=== PATIENT | female | born 1930 | race Caucasian/White ===

== ENCOUNTER 2017-06-20 07:35 | Outpatient (CLI) | payer OTHER ==
[~2017-06-20 07:35] MED LIST: ALLOPURINOL100 MG PO; BTREX; DIOVAN160 M1 PO; DIOVAN40 MG PO; METAMUCIL1 PKT PO; NEURIN SL; NEURONTIN300 MG PO; NORVASC10 MG PO; PANCRELIPASE PO; SYNTHROID75 MCG PO; TRAMADOL HCL-AP1 TAB PO; TRENTAL; TROMBONEX CAPSU1 CAP PO; VALTREX1000 MG PO; ZOCOR40 MG PO
== END 2017-06-20 07:46 | disposition home or self-care (01) ==
LOC: LAB 07:35
DX: E11.65 Type 2 diabetes mellitus with hyperglycemia (principal); D68.8 Other specified coagulation defects; E03.8 Other specified hypothyroidism; E78.2 Mixed hyperlipidemia

== ENCOUNTER 2017-06-28 09:23 | Outpatient (CLI) | payer OTHER | END 2017-06-28 09:35 | disposition home or self-care (01) | LOC: NUCLEAR 09:23 | DX: M81.0 Age-related osteoporosis without current pathological fracture (principal) ==

== ENCOUNTER 2017-08-21 09:31 | Outpatient (CLI) | payer OTHER | END 2017-08-21 10:21 | disposition home or self-care (01) | LOC: LAB 09:31 | DX: R63.0 Anorexia (principal); N39.0 Urinary tract infection, site not specified; D53.1 Other megaloblastic anemias, not elsewhere classified; K57.32 Diverticulitis of large intestine without perforation or abscess without bleeding; D51.8 Other vitamin B12 deficiency anemias; D64.89 Other specified anemias; R10.84 Generalized abdominal pain ==

== ENCOUNTER 2017-09-25 07:47 | Outpatient (CLI) | payer OTHER | END 2017-09-25 08:03 | disposition home or self-care (01) | LOC: LAB 07:47 | DX: E11.65 Type 2 diabetes mellitus with hyperglycemia (principal); D68.8 Other specified coagulation defects; R82.79 Other abnormal findings on microbiological examination of urine; E03.8 Other specified hypothyroidism; N39.0 Urinary tract infection, site not specified; E78.2 Mixed hyperlipidemia; J45.998 Other asthma ==

== ENCOUNTER 2017-11-01 08:47 | Outpatient (CLI) | payer OTHER | END 2017-11-01 09:10 | disposition home or self-care (01) | LOC: LAB 08:47 | DX: D68.8 Other specified coagulation defects (principal); D51.0 Vitamin B12 deficiency anemia due to intrinsic factor deficiency; K29.40 Chronic atrophic gastritis without bleeding; N39.0 Urinary tract infection, site not specified; R82.79 Other abnormal findings on microbiological examination of urine ==

== ENCOUNTER → 2017-11-02 | Outpatient (CLI) | payer OTHER | END | disposition home or self-care (01) | LOC: LAB 07:53 | DX: D68.8 Other specified coagulation defects (principal); D51.0 Vitamin B12 deficiency anemia due to intrinsic factor deficiency; K29.40 Chronic atrophic gastritis without bleeding; N39.0 Urinary tract infection, site not specified; Z12.11 Encounter for screening for malignant neoplasm of colon ==

== ENCOUNTER 2017-12-04 11:18 | Outpatient (CLI) | payer OTHER | END 2017-12-04 11:19 | disposition home or self-care (01) | LOC: LAB 11:18 | DX: E11.65 Type 2 diabetes mellitus with hyperglycemia (principal); D68.8 Other specified coagulation defects; E03.8 Other specified hypothyroidism; N39.0 Urinary tract infection, site not specified; R82.8 Abnormal findings on cytological and histological examination of urine ==

== ENCOUNTER 2018-01-08 08:42 | Outpatient (CLI) | payer OTHER | END 2018-01-08 09:08 | disposition home or self-care (01) | LOC: LAB 08:42 | DX: E11.21 Type 2 diabetes mellitus with diabetic nephropathy (principal); E11.65 Type 2 diabetes mellitus with hyperglycemia; N39.0 Urinary tract infection, site not specified; R82.79 Other abnormal findings on microbiological examination of urine ==

== ENCOUNTER 2018-01-10 09:29 | Outpatient (CLI) | payer OTHER | END 2018-01-10 09:44 | disposition home or self-care (01) | LOC: LAB 09:29 | DX: E11.21 Type 2 diabetes mellitus with diabetic nephropathy (principal); E11.65 Type 2 diabetes mellitus with hyperglycemia; N39.0 Urinary tract infection, site not specified ==

== ENCOUNTER 2018-02-15 08:58 | Outpatient (CLI) | payer OTHER | END 2018-02-15 15:00 | disposition home or self-care (01) | LOC: LAB 08:58 | DX: R10.84 Generalized abdominal pain (principal); D49.0 Neoplasm of unspecified behavior of digestive system; D12.4 Benign neoplasm of descending colon; R63.0 Anorexia; K85.90 Acute pancreatitis without necrosis or infection, unspecified ==

== ENCOUNTER 2018-02-15 09:56 | Outpatient (CLI) | payer OTHER | END 2018-02-15 14:59 | disposition home or self-care (01) | LOC: MRI 09:56 | DX: D49.0 Neoplasm of unspecified behavior of digestive system (principal); R10.84 Generalized abdominal pain; R63.0 Anorexia | CPT/HCPCS: 74181 ==

== ENCOUNTER → 2018-04-09 09:34 | Outpatient (CLI) | payer OTHER | END | disposition home or self-care (01) | LOC: LAB 09:34 | DX: E11.65 Type 2 diabetes mellitus with hyperglycemia (principal); E03.8 Other specified hypothyroidism; D64.89 Other specified anemias; N39.0 Urinary tract infection, site not specified; R82.79 Other abnormal findings on microbiological examination of urine ==

== ENCOUNTER 2018-06-21 08:38 | Outpatient (CLI) | payer OTHER | END 2018-06-21 08:53 | disposition home or self-care (01) | LOC: LAB 08:38 | DX: E03.8 Other specified hypothyroidism (principal); E78.2 Mixed hyperlipidemia; E11.21 Type 2 diabetes mellitus with diabetic nephropathy; D64.89 Other specified anemias ==

== ENCOUNTER 2018-08-06 09:31 | Outpatient (CLI) | payer OTHER | END 2018-08-06 09:33 | disposition home or self-care (01) | LOC: MAMO-SONO 09:31 | DX: Z12.31 Encounter for screening mammogram for malignant neoplasm of breast (principal); Z87.898 Personal history of other specified conditions; N60.11 Diffuse cystic mastopathy of right breast; N60.12 Diffuse cystic mastopathy of left breast ==

== ENCOUNTER → 2018-09-27 08:22 | Outpatient (CLI) | payer OTHER | END | disposition home or self-care (01) | LOC: LAB 08:22 | DX: N39.0 Urinary tract infection, site not specified (principal); E03.8 Other specified hypothyroidism; E11.65 Type 2 diabetes mellitus with hyperglycemia; E11.21 Type 2 diabetes mellitus with diabetic nephropathy; B96.29 Other Escherichia coli [E. coli] as the cause of diseases classified elsewhere ==

== ENCOUNTER 2018-12-16 11:02 | Outpatient (CLI) | payer OTHER | END 2018-12-16 15:00 | disposition home or self-care (01) | LOC: LAB 11:02 | DX: D64.89 Other specified anemias (principal); E79.0 Hyperuricemia without signs of inflammatory arthritis and tophaceous disease; E55.9 Vitamin D deficiency, unspecified; E11.65 Type 2 diabetes mellitus with hyperglycemia; E03.8 Other specified hypothyroidism ==

== ENCOUNTER → 2019-03-13 | Outpatient (CLI) | payer OTHER ==
[~2019-03-13] MED LIST changes: +CIPRO500 MG PO; +OFLOXACIN5 ML OTIC
== END | disposition home or self-care (01) ==
LOC: SONOGRAMA 11:37
DX: E04.2 Nontoxic multinodular goiter (principal); E03.8 Other specified hypothyroidism; E04.1 Nontoxic single thyroid nodule

== ENCOUNTER 2019-04-07 08:28 | Outpatient (CLI) | payer OTHER ==
[~2019-04-07 08:28] MED LIST changes: -CIPRO500 MG PO; -OFLOXACIN5 ML OTIC
== END 2019-04-07 08:34 | disposition home or self-care (01) ==
LOC: LAB 08:28
DX: D64.89 Other specified anemias (principal); E79.0 Hyperuricemia without signs of inflammatory arthritis and tophaceous disease; E03.8 Other specified hypothyroidism

== ENCOUNTER 2019-04-09 07:57 | Outpatient (CLI) | payer OTHER ==
[~2019-04-09] VITALS: Ht 154.9 cm; Wt 69.9 kg
[2019-04-09] MEDS ORDERED: CIPRO500 MG PO (11:15)
[2019-04-09] MEDS ORDERED: OFLOXACIN5 ML OTIC (11:15)
== END 2019-04-09 11:23 | disposition home or self-care (01) ==
LOC: OFIC 805 07:57
DX: J31.0 Chronic rhinitis (principal); H60.8X1 Other otitis externa, right ear; H92.11 Otorrhea, right ear

== ENCOUNTER 2019-04-23 07:57 | Outpatient (CLI) | payer OTHER ==
[~2019-04-23] VITALS: Ht 152.4 cm; Wt 69.9 kg
[~2019-04-23 07:57] MED LIST changes: +CIPRO500 MG PO; +OFLOXACIN5 ML OTIC
[2019-04-23] MEDS ORDERED: DERMOTIC20 ML OTIC (09:39)
== END 2019-04-23 09:52 | disposition home or self-care (01) ==
LOC: OFIC 805 07:57
DX: L29.8 Other pruritus (principal); J31.0 Chronic rhinitis; H60.8X1 Other otitis externa, right ear; H61.21 Impacted cerumen, right ear
CPT/HCPCS: 69210; 99213; G0463

== ENCOUNTER 2019-07-04 08:44 | Outpatient (CLI) | payer OTHER ==
[~2019-07-04 08:44] MED LIST changes: +DERMOTIC20 ML OTIC
== END 2019-07-04 08:55 | disposition home or self-care (01) ==
LOC: LAB 08:44
DX: E03.8 Other specified hypothyroidism (principal); E11.65 Type 2 diabetes mellitus with hyperglycemia; E78.2 Mixed hyperlipidemia; D64.89 Other specified anemias

== ENCOUNTER 2019-09-05 13:44 | Emergency (ER) | payer OTHER ==
[~2019-09-05] VITALS: Ht 149.9 cm; Wt 68.0 kg
[2019-09-05] MEDS ORDERED: SYNTHROID100 MCG (14:00)
[2019-09-05] MEDS ORDERED: SYNTHROID112 MCG (14:00)
[2019-09-05] MEDS ORDERED: CREON DR 12,001 EACH (14:01)
[2019-09-05] MEDS ORDERED: ATORVASTATIN CA20 MG (14:02)
== END 2019-09-05 15:21 | disposition home or self-care (01) ==
LOC: ER 13:44
DX: M54.32 Sciatica, left side (principal); M25.562 Pain in left knee

== ENCOUNTER 2019-10-08 07:47 | Outpatient (CLI) | payer OTHER ==
[~2019-10-08 07:47] MED LIST changes: +ATORVASTATIN CA20 MG; +CREON DR 12,001 EACH; +SYNTHROID100 MCG; +SYNTHROID112 MCG
== END 2019-10-08 07:51 | disposition home or self-care (01) ==
LOC: LAB 07:47
PROVIDERS: ATTEND Specialist
DX: E03.8 Other specified hypothyroidism (principal); Z12.11 Encounter for screening for malignant neoplasm of colon; D64.89 Other specified anemias; E11.65 Type 2 diabetes mellitus with hyperglycemia

== ENCOUNTER → 2019-10-14 08:40 | Outpatient (CLI) | payer OTHER | END | disposition home or self-care (01) | LOC: LAB 08:40 | PROVIDERS: ATTEND Specialist | DX: E03.8 Other specified hypothyroidism (principal); Z12.11 Encounter for screening for malignant neoplasm of colon; D64.89 Other specified anemias; E11.65 Type 2 diabetes mellitus with hyperglycemia ==

== ENCOUNTER 2020-02-05 08:31 | Outpatient (CLI) | payer OTHER | END 2020-02-05 08:38 | disposition home or self-care (01) | LOC: LAB 08:31 | PROVIDERS: ATTEND Specialist | DX: N39.0 Urinary tract infection, site not specified (principal); E11.65 Type 2 diabetes mellitus with hyperglycemia; Z12.11 Encounter for screening for malignant neoplasm of colon; E03.8 Other specified hypothyroidism; E78.2 Mixed hyperlipidemia; B96.29 Other Escherichia coli [E. coli] as the cause of diseases classified elsewhere ==

== ENCOUNTER → 2020-03-26 07:51 | Outpatient (CLI) | payer OTHER | END | disposition home or self-care (01) | LOC: LAB 07:51 | PROVIDERS: ATTEND Specialist | DX: E05.80 Other thyrotoxicosis without thyrotoxic crisis or storm (principal); E79.0 Hyperuricemia without signs of inflammatory arthritis and tophaceous disease ==

== ENCOUNTER 2020-06-21 08:32 | Outpatient (CLI) | payer OTHER | END 2020-06-21 08:38 | disposition home or self-care (01) | LOC: LAB 08:32 | PROVIDERS: ATTEND Specialist | DX: N39.0 Urinary tract infection, site not specified (principal); B96.29 Other Escherichia coli [E. coli] as the cause of diseases classified elsewhere; E03.8 Other specified hypothyroidism; E11.65 Type 2 diabetes mellitus with hyperglycemia; D64.89 Other specified anemias; E78.2 Mixed hyperlipidemia; D51.0 Vitamin B12 deficiency anemia due to intrinsic factor deficiency ==

== ENCOUNTER 2020-07-13 09:51 | Outpatient (CLI) | payer OTHER | END 2020-07-13 12:50 | disposition home or self-care (01) | LOC: OFIC 805 09:51 | PROVIDERS: ATTEND Otolaryngology | DX: M54.2 Cervicalgia (principal); H61.23 Impacted cerumen, bilateral; K21.9 Gastro-esophageal reflux disease without esophagitis ==

== ENCOUNTER 2020-07-23 11:29 | Outpatient (CLI) | payer OTHER | END 2020-07-23 11:40 | disposition home or self-care (01) | LOC: SONOGRAMA 11:29 → MAMO-SONO 13:15 | PROVIDERS: ATTEND Otolaryngology | DX: R22.2 Localized swelling, mass and lump, trunk (principal); R13.19 Other dysphagia; E04.2 Nontoxic multinodular goiter ==

== ENCOUNTER → 2020-09-06 09:14 | Outpatient (CLI) | payer OTHER | END | disposition home or self-care (01) | LOC: LAB 09:14 | PROVIDERS: ATTEND Specialist | DX: E03.8 Other specified hypothyroidism (principal); E78.2 Mixed hyperlipidemia ==

== ENCOUNTER → 2020-11-09 08:49 | Outpatient (CLI) | payer OTHER | END | disposition home or self-care (01) | LOC: LAB 08:49 | PROVIDERS: ATTEND Internal Medicine Nephrology | DX: I10 Essential (primary) hypertension (principal) ==

== ENCOUNTER 2020-11-16 09:39 | Outpatient (CLI) | payer OTHER | END 2020-11-26 09:27 | disposition home or self-care (01) | LOC: RAD 09:39 | PROVIDERS: ATTEND Specialist | DX: I10 Essential (primary) hypertension (principal); J45.998 Other asthma ==

== ENCOUNTER 2020-11-29 10:42 | Outpatient (CLI) | payer OTHER | END 2020-11-29 10:44 | disposition home or self-care (01) | LOC: LAB 10:42 | PROVIDERS: ATTEND Specialist | DX: E03.8 Other specified hypothyroidism (principal); N39.0 Urinary tract infection, site not specified; E78.2 Mixed hyperlipidemia; Z12.11 Encounter for screening for malignant neoplasm of colon; E11.69 Type 2 diabetes mellitus with other specified complication ==

== ENCOUNTER → 2020-12-01 09:20 | Outpatient (CLI) | payer OTHER | END | disposition home or self-care (01) | LOC: LAB 09:20 | PROVIDERS: ATTEND Specialist | DX: E03.8 Other specified hypothyroidism (principal); E78.2 Mixed hyperlipidemia; Z12.11 Encounter for screening for malignant neoplasm of colon; N39.0 Urinary tract infection, site not specified; E11.69 Type 2 diabetes mellitus with other specified complication ==

== ENCOUNTER 2021-03-02 09:22 | Outpatient (CLI) | payer OTHER | END 2021-03-02 09:30 | disposition home or self-care (01) | LOC: RAD 09:22 | PROVIDERS: ATTEND Internal Medicine Rheumatology | DX: M16.0 Bilateral primary osteoarthritis of hip (principal) ==

== ENCOUNTER 2021-05-18 10:08 | Outpatient (CLI) | payer OTHER | END 2021-05-18 10:26 | disposition home or self-care (01) | LOC: LAB 10:08 | PROVIDERS: ATTEND Specialist | DX: E03.8 Other specified hypothyroidism (principal); E11.21 Type 2 diabetes mellitus with diabetic nephropathy; N39.8 Other specified disorders of urinary system; E78.2 Mixed hyperlipidemia; E11.65 Type 2 diabetes mellitus with hyperglycemia; Z12.11 Encounter for screening for malignant neoplasm of colon; D64.89 Other specified anemias; J45.998 Other asthma; N18.30 Chronic kidney disease, stage 3 unspecified; I10 Essential (primary) hypertension; R80.8 Other proteinuria ==

== ENCOUNTER 2021-05-19 10:36 | Outpatient (CLI) | payer OTHER | END 2021-05-19 10:43 | disposition home or self-care (01) | LOC: LAB 10:36 | PROVIDERS: ATTEND Specialist | DX: E03.8 Other specified hypothyroidism (principal); E11.21 Type 2 diabetes mellitus with diabetic nephropathy; E78.2 Mixed hyperlipidemia; E11.65 Type 2 diabetes mellitus with hyperglycemia; Z12.11 Encounter for screening for malignant neoplasm of colon; D64.89 Other specified anemias; J45.998 Other asthma ==